=== PATIENT | female | born 1960 | race Asian ===

== ENCOUNTER 2018-09-13 16:30 | Inpatient (IN) | payer MEDICAID ==
[~2018-09-13] VITALS: Ht 149.9 cm; Wt 61.0 kg
[~2018-09-13 16:30] MED LIST: ATOR40TA7 PO; BENZ-16 PO; CALC-159 PO; FLUO20CA39 PO; GABA300C PO; GLYB2.5T2 PO; HYDR-4383 PO; LEVO75TA PO; LISI-642 PO; LORA10TA65 PO; PANT20TA2 PO
[2018-09-13] MEDS ORDERED: LOSA50TA3 PO (16:50)
[2018-09-13] MEDS ORDERED: HYDR12.5 PO (16:50)
[2018-09-13] MEDS ORDERED: METF-436 PO (16:50)
[2018-09-13] MEDS ORDERED: AMIT10TA6 PO (16:50)
[2018-09-13] MEDS ORDERED: LEVO100T PO (16:53)
--- NOTE | 2018-09-13 16:55 | NUR ---
arrived to bed 1 for stroke alert. Pt last normal at 1230, was with fishing when she suddenly developed right side weakness, arm and leg, difficulty walking, also numbness to right side. Speech is slurred. Daughter Lay is at bedside to translate. Pt exam shows right side weakness and decreased sensation. Request for CTA as she is beyond the 4 1/2 hr window.
[2018-09-13] MEDS ORDERED: iohexol 350MG/ML 100ml bottle IV ONE (17:05)
--- NOTE | 2018-09-13 17:05 | NUR ---
TELENEURO HAS BEEN PAGED
[2018-09-13 17:10] LABS: BASOPHILS % (AUTO) 0.6 % (0-1); EOSINOPHILS # (AUTO) 0.3 X10'3 (0-0.9); EOSINOPHILS % (AUTO) 5.5 % (0-6); HEMATOCRIT 40.3 % (35.0-45.0); HEMOGLOBIN 13.6 g/dl (12.0-16.0); LYMPHOCYTES # (AUTO) 2.5 X10'3 (1.1-4.8); LYMPHOCYTES % (AUTO) 40.5 % (21-51); MEAN CORPUSCULAR HEMOGLOBIN 30.2 PG (27.0-31.0); MEAN CORPUSCULAR HGB CONC 33.9 g/dL (33.0-36.5); MEAN CORPUSCULAR VOLUME 89.2 FL (78-98); MEAN PLATELET VOLUME 9.5 FL (7.4-10.4); MONOCYTES # (AUTO) 0.4 X10'3 (0-0.9); MONOCYTES % (AUTO) 7.3 % (2-12); NEUTROPHILS # (AUTO) 2.8 X10'3 (1.8-7.7); NEUTROPHILS % (AUTO) 46.1 % (42-75); PLATELET COUNT 181 X10'3 (140-440); RED BLOOD COUNT 4.51 X10'6 (4.20-5.60); RED CELL DISTRIBUTION WIDTH 12.9 % (11.5-14.5); WHITE BLOOD COUNT 6.2 X10'3 (4.5-11.0)
--- NOTE | 2018-09-13 17:10 | NUR ---
pt to ct for CTA head and neck via [facility]. Awaiting telemed consult with [facility]
[2018-09-13 17:23] LABS: PARTIAL THROMBOPLASTIN TIME 27 SECONDS (22-32)
[2018-09-13 17:25] LABS: ALANINE AMINOTRANSFERASE 32 U/L (12-78); ALBUMIN 3.6 G/DL (3.4-5.0); ALBUMIN/GLOBULIN RATIO 0.8 (1.1-1.5); ALKALINE PHOSPHATASE 80 IU/L (46-116); ANION GAP 7 (8-16); ASPARTATE AMINO TRANSFERASE 20 U/L (10-37); BILIRUBIN,TOTAL 0.5 MG/DL (0.1-1.0); BLOOD UREA NITROGEN 27 MG/DL (7-18); BUN/CREATININE RATIO 20.6 (6.6-38.0); CALCIUM 9.2 MG/DL (8.5-10.1); CHLORIDE 103 MMOL/L (99-107); CREATININE 1.31 MG/DL (0.40-0.90); GLUCOSE 114 MG/DL (70-104); POTASSIUM 3.5 MMOL/L (3.5-5.1); SODIUM 139 MMOL/L (135-145); TOTAL PROTEIN 7.9 G/DL (6.4-8.2); eGFR 42 ML/MIN
[2018-09-13 17:26] LABS: TROPONIN I < 0.04 NG/ML (0.0-0.05)
--- NOTE | 2018-09-13 17:30 | NUR ---
back from cta. neurologist consult called and tech from tele neuro vertified pt name
--- NOTE | 2018-09-13 17:40 | NUR ---
Telemed consult complete. NIHSS 5
[2018-09-13] MEDS ORDERED: aspirin 81mg tab.chew PO ONE (17:50)
--- NOTE | 2018-09-13 18:01 | NUR ---
CTA results demonstrate no large vessel occlusion.
--- NOTE | 2018-09-13 19:16 | NUR ---
pt resting quietly with daughter at bedside. states having a little more improvement than when she came.
[2018-09-13] MEDS ORDERED: ondansetron/PF 4mg/2ml inj IV PRN (20:05)
[2018-09-13] MEDS ORDERED: acetaminophen 325mg tablet PO PRN (20:05)
[2018-09-13] MEDS ORDERED: mag hydrox/Alum hydrox/simeth 30ml oral suspension PO PRN (20:05)
[2018-09-13] MEDS ORDERED: magnesium hydroxide 30ml (MOM) UD suspension PO PRN (20:05)
[2018-09-13] MEDS ORDERED: bisacodyl 10mg suppository rectal RC PRN (20:05)
[2018-09-13] MEDS ORDERED: magnesium Cl slow-release 64mg tablet PO PRN (20:05)
[2018-09-13] MEDS ORDERED: magnesium 2GM in 50ml NS 50 ML IV PRN (20:05)
[2018-09-13] MEDS ORDERED: magnesium 4gm in 100ml NS 100 ML IV PRN (20:05)
[2018-09-13] MEDS ORDERED: potassium Cl 20 mEq SR tablet PO PRN ×2 (20:05)
[2018-09-13] MEDS ORDERED: potassium Cl 40MEQ/NS 500ml 500 ML IV PRN (20:05)
[2018-09-13] MEDS ORDERED: potassium CL 10mEq/100ml bag 100 ML IV PRN (20:05)
[2018-09-13] MEDS ORDERED: MESSAGE TO PHARMACY PO ONE (20:10)
[2018-09-13] MEDS ORDERED: glucagon, human recombinant 1mg kit SUBCUT PRN (20:10)
[2018-09-13] MEDS ORDERED: dextrose ORAL solution 15 GM/59 ML bottle PO PRN ×2 (20:10)
[2018-09-13] MEDS ORDERED: insulin Lispro (HumaLOG) vial - multi-dose SQ SCH (20:10)
[2018-09-13] MEDS ORDERED: dextrose 50%-water 50ml dispensing syringe IV PRN ×2 (20:10)
[2018-09-13 20:28] LABS: HEMOGLOBIN A1C 7.1 % (4.5-6.2)
--- NOTE | 2018-09-13 21:15 | NUR ---
Received report from Kavita CHUNG from ER pending arrival to floor.
[2018-09-13 21:30] VITALS: BP 139/76
[2018-09-13] MEDS: atorvastatin 20mg tablet PO SCH (21:42)
[2018-09-13] MEDS: gabapentin 300mg capsule PO SCH (21:42)
[2018-09-13] MEDS: amitriptyline 10mg tablet PO SCH (21:42)
[2018-09-13] MEDS: potassium Cl 20mEq in NS 1,000 ML IV SCH (21:43)
[2018-09-14 02:01] VITALS: BP 110/64
[2018-09-14 06:10] VITALS: BP 114/69
--- NOTE | 2018-09-14 06:21 | NUR ---
Problems reprioritized. Patient report given, questions answered & plan of care reviewed with JULIET Castro.
--- NOTE | 2018-09-14 06:30 | NUR ---
Patient in room [facility] 4015. I have received report from Annita Griggs RN and had the opportunity to ask questions and assume patient care.
[2018-09-14 07:02] LABS: BASOPHILS # (AUTO) 0.1 X10'3 (0-0.2); EOSINOPHILS # (AUTO) 0.3 X10'3 (0-0.9); EOSINOPHILS % (AUTO) 5.6 % (0-6); HEMATOCRIT 38.6 % (35.0-45.0); HEMOGLOBIN 13.4 g/dl (12.0-16.0); LYMPHOCYTES # (AUTO) 2.5 X10'3 (1.1-4.8); LYMPHOCYTES % (AUTO) 43.7 % (21-51); MEAN CORPUSCULAR HEMOGLOBIN 30.8 PG (27.0-31.0); MEAN CORPUSCULAR HGB CONC 34.8 g/dL (33.0-36.5); MEAN CORPUSCULAR VOLUME 88.5 FL (78-98); MEAN PLATELET VOLUME 9.1 FL (7.4-10.4); MONOCYTES # (AUTO) 0.3 X10'3 (0-0.9); MONOCYTES % (AUTO) 6.1 % (2-12); NEUTROPHILS # (AUTO) 2.5 X10'3 (1.8-7.7); NEUTROPHILS % (AUTO) 43.6 % (42-75); PLATELET COUNT 156 X10'3 (140-440); RED BLOOD COUNT 4.36 X10'6 (4.20-5.60); RED CELL DISTRIBUTION WIDTH 12.8 % (11.5-14.5); WHITE BLOOD COUNT 5.6 X10'3 (4.5-11.0)
[2018-09-14] MEDS: loratadine 10mg tablet PO SCH (07:05)
[2018-09-14] MEDS: FLUoxetine 20mg capsule PO SCH (07:05)
[2018-09-14] MEDS: aspirin 325mg tablet, delayed-release (Ecotrin) PO SCH (07:05)
[2018-09-14] MEDS: gabapentin 300mg capsule PO SCH ×3 (07:05→20:32)
[2018-09-14] MEDS: levoTHYROXINE 100mcg tablet PO SCH (07:06)
[2018-09-14] MEDS: docusate sod 100mg capsule PO SCH ×2 (07:06→20:32)
[2018-09-14] MEDS: calcium carbonate/vitamin D3 tablet PO SCH (07:06)
[2018-09-14] MEDS: enoxaparin 40mg/0.4ml syringe SUBCUT SCH (07:09)
[2018-09-14 07:37] LABS: ALANINE AMINOTRANSFERASE 28 U/L (12-78); ALBUMIN 3.3 G/DL (3.4-5.0); ALBUMIN/GLOBULIN RATIO 0.8 (1.1-1.5); ALKALINE PHOSPHATASE 75 IU/L (46-116); ANION GAP 9 (8-16); ASPARTATE AMINO TRANSFERASE 21 U/L (10-37); BILIRUBIN,TOTAL 0.3 MG/DL (0.1-1.0); BLOOD UREA NITROGEN 26 MG/DL (7-18); BUN/CREATININE RATIO 24.3 (6.6-38.0); CALCIUM 8.7 MG/DL (8.5-10.1); CHLORIDE 107 MMOL/L (99-107); CHOL/HDL RATIO 5.2 (0.00-4.99); CHOLESTEROL 162 MG/DL (0-200); CREATININE 1.07 MG/DL (0.40-0.90); GLUCOSE 123 MG/DL (70-104); HDL CHOLESTEROL 31 MG/DL (35-60); LDL CHOLESTEROL 96 MG/DL (50-100); MAGNESIUM 1.7 MG/DL (1.5-2.4); POTASSIUM 3.9 MMOL/L (3.5-5.1); SODIUM 140 MMOL/L (135-145); TOTAL CARBON DIOXIDE 24.4 MMOL/L (24-32); TOTAL PROTEIN 7.3 G/DL (6.4-8.2); TRIGLYCERIDES 222 MG/DL (20-135); eGFR 53 ML/MIN
[2018-09-14] MEDS: K and/or MAG REPLACEMENT MC SCH (08:00)
[2018-09-14] MEDS: losartan 50mg tablet PO SCH (08:00)
[2018-09-14 10:00] VITALS: BP 115/68
--- NOTE | 2018-09-14 10:50 | NUR ---
okayed not to give losartan.
[2018-09-14] MEDS: potassium Cl 20mEq in NS 1,000 ML IV SCH (12:00)
--- NOTE | 2018-09-14 12:46 | NUR ---
Patient report given to Vasile CHUNG
[2018-09-14 13:31] VITALS: BP 134/61
--- NOTE | 2018-09-14 13:52 | NUR ---
DM consult, A1C is 7.1, met patient at bedside to provide verbal review of DM, patient does not read Georgian so written ed was not given. RN spoke with patient also to provide education and goal for glucose range. Pt verbalized understanding Addendum: 09/14/18 at [address] Amended: Links added.
[2018-09-14 18:00] VITALS: BP 147/78
--- NOTE | 2018-09-14 18:20 | NUR ---
Problems reprioritized. Patient report given, questions answered & plan of care reviewed with Etelvina CHUNG.
[2018-09-14] MEDS: atorvastatin 20mg tablet PO SCH (20:32)
[2018-09-14] MEDS: amitriptyline 10mg tablet PO SCH (20:32)
[2018-09-14 22:24] VITALS: BP 139/55
[2018-09-15] MEDS: potassium Cl 20mEq in NS 1,000 ML IV SCH (03:02)
[2018-09-15 04:30] VITALS: BP 106/78
--- NOTE | 2018-09-15 06:05 | NUR ---
Problems reprioritized. Patient report given, questions answered & plan of care reviewed with JULIET Castro.
--- NOTE | 2018-09-15 06:30 | NUR ---
I have received patient report from Etelvina Ambrosio RN
[2018-09-15 07:27] LABS: BASOPHILS % (AUTO) 0.8 % (0-1); EOSINOPHILS # (AUTO) 0.3 X10'3 (0-0.9); EOSINOPHILS % (AUTO) 5.8 % (0-6); HEMATOCRIT 38.2 % (35.0-45.0); HEMOGLOBIN 13.1 g/dl (12.0-16.0); LYMPHOCYTES # (AUTO) 2.2 X10'3 (1.1-4.8); LYMPHOCYTES % (AUTO) 45.9 % (21-51); MEAN CORPUSCULAR HEMOGLOBIN 30.3 PG (27.0-31.0); MEAN CORPUSCULAR HGB CONC 34.3 g/dL (33.0-36.5); MEAN CORPUSCULAR VOLUME 88.5 FL (78-98); MEAN PLATELET VOLUME 9.3 FL (7.4-10.4); MONOCYTES # (AUTO) 0.3 X10'3 (0-0.9); MONOCYTES % (AUTO) 5.4 % (2-12); NEUTROPHILS % (AUTO) 42.1 % (42-75); PLATELET COUNT 153 X10'3 (140-440); RED BLOOD COUNT 4.31 X10'6 (4.20-5.60); RED CELL DISTRIBUTION WIDTH 12.6 % (11.5-14.5); WHITE BLOOD COUNT 4.7 X10'3 (4.5-11.0)
[2018-09-15] MEDS: loratadine 10mg tablet PO SCH (07:43)
[2018-09-15] MEDS: aspirin 325mg tablet, delayed-release (Ecotrin) PO SCH (07:43)
[2018-09-15] MEDS: docusate sod 100mg capsule PO SCH (07:44)
[2018-09-15] MEDS: FLUoxetine 20mg capsule PO SCH (07:44)
[2018-09-15] MEDS: gabapentin 300mg capsule PO SCH (07:44)
[2018-09-15] MEDS: calcium carbonate/vitamin D3 tablet PO SCH (07:44)
[2018-09-15] MEDS: enoxaparin 40mg/0.4ml syringe SUBCUT SCH (07:44)
[2018-09-15] MEDS: levoTHYROXINE 100mcg tablet PO SCH (07:44)
[2018-09-15] MEDS: K and/or MAG REPLACEMENT MC SCH (08:00)
[2018-09-15 08:31] LABS: ALANINE AMINOTRANSFERASE 30 U/L (12-78); ALBUMIN 3.1 G/DL (3.4-5.0); ALBUMIN/GLOBULIN RATIO 0.8 (1.1-1.5); ALKALINE PHOSPHATASE 72 IU/L (46-116); ANION GAP 7 (8-16); ASPARTATE AMINO TRANSFERASE 20 U/L (10-37); BILIRUBIN,TOTAL 0.4 MG/DL (0.1-1.0); BLOOD UREA NITROGEN 17 MG/DL (7-18); BUN/CREATININE RATIO 17.5 (6.6-38.0); CALCIUM 8.3 MG/DL (8.5-10.1); CHLORIDE 108 MMOL/L (99-107); CREATININE 0.97 MG/DL (0.40-0.90); GLUCOSE 109 MG/DL (70-104); MAGNESIUM 1.7 MG/DL (1.5-2.4); POTASSIUM 4.3 MMOL/L (3.5-5.1); SODIUM 142 MMOL/L (135-145); TOTAL CARBON DIOXIDE 26.6 MMOL/L (24-32); eGFR 59 ML/MIN
[2018-09-15 10:00] VITALS: BP 169/85
[2018-09-15] MEDS: losartan 50mg tablet PO SCH (11:29)
[2018-09-15] MEDS ORDERED: ASPI-845 PO (11:49)
== END 2018-09-15 13:00 | disposition home health service (06) | DRG 45 ==
LOC: ER 16:31 → ORTHO 4S 20:39 → CMPBEDREQ 21:59
PROVIDERS: ADMIT Internal Medicine; ATTEND Family Medicine
PROC: B3251ZZ Computerized Tomography (CT Scan) of Bilateral Common Carotid Arteries using Low Osmolar Contrast (ICD-10-PCS; principal; 2018-09-13)
PROC: B32G1ZZ Computerized Tomography (CT Scan) of Bilateral Vertebral Arteries using Low Osmolar Contrast (ICD-10-PCS; 2018-09-13)
PROC: B3281ZZ Computerized Tomography (CT Scan) of Bilateral Internal Carotid Arteries using Low Osmolar Contrast (ICD-10-PCS; 2018-09-13)
DX: I63.9 Cerebral infarction, unspecified (principal); E86.0 Dehydration; G81.91 Hemiplegia, unspecified affecting right dominant side; E03.9 Hypothyroidism, unspecified; E11.9 Type 2 diabetes mellitus without complications; E78.00 Pure hypercholesterolemia, unspecified; E78.5 Hyperlipidemia, unspecified; I10 Essential (primary) hypertension; K21.9 Gastro-esophageal reflux disease without esophagitis; G89.29 Other chronic pain; M54.9 Dorsalgia, unspecified; Z79.890 Hormone replacement therapy; Z79.899 Other long term (current) drug therapy; Z90.710 Acquired absence of both cervix and uterus; Z79.84 Long term (current) use of oral hypoglycemic drugs
CPT/HCPCS: 36415; 70450; 70496; 70498; 70544; 70551; 71045; 80053; 80061; 82948; 83036; 83735; 84443; 84484; 85025; 85610; 85651; 85730; 86038; 87070; 92508; 92616; 93005; 93306; 93880; 97110; 97116; 97161; 99291; G0378; J1650; Q9967